=== PATIENT | male | born 1980 | race Caucasian/White ===

== ENCOUNTER 2022-06-30 09:58 | Emergency (ER) | payer SELFPAY ==
[~2022-06-30] VITALS: Ht 187.9 cm; Wt 117.9 kg
[2022-06-30] MEDS ORDERED: LIDOCAINE 2% VISCOUS 15 ML UDC PO ONE (10:45)
[2022-06-30] MEDS ORDERED: ANTACID SUSP 30 ML UDC (MYLANTA) PO ONE (10:45)
[2022-06-30] MEDS ORDERED: SUCRALFATE 1 GM (CARAFATE) TAB PO ONE (10:45)
[2022-06-30 10:54] LABS: BASOPHILS # (AUTO) 0.1 10^3/uL (0.0-0.1); BASOPHILS % (AUTO) 1 % (0-10); EOSINOPHILS # (AUTO) 0.1 10^3/uL (0.0-0.3); EOSINOPHILS % (AUTO) 1 % (0-10); HEMATOCRIT 46 % (40-54); HEMOGLOBIN 15.8 g/dL (13.3-17.7); LYMPHOCYTES # (AUTO) 2.8 10^3/uL (1.0-4.0); LYMPHOCYTES % (AUTO) 31 % (12-44); MEAN CORPUSCULAR HEMOGLOBIN 31 pg (25-34); MEAN CORPUSCULAR HGB CONC 34 g/dL (32-36); MEAN CORPUSCULAR VOLUME 89 fL (80-99); MEAN PLATELET VOLUME 11.8 fL (9.0-12.2); MONOCYTES # (AUTO) 0.6 10^3/uL (0.0-1.0); MONOCYTES % (AUTO) 7 % (0-12); NEUTROPHILS # (AUTO) 5.4 10^3/uL (1.8-7.8); NEUTROPHILS % (AUTO) 60 % (42-75); PLATELET COUNT 189 10^3/uL (130-400)
[2022-06-30 11:06] LABS: ALBUMIN 4.2 GM/DL (3.2-4.5)
[2022-06-30 11:07] LABS: POTASSIUM 3.5 MMOL/L (3.6-5.0)
[2022-06-30 11:08] LABS: CALCIUM 9.1 MG/DL (8.5-10.1)
[2022-06-30 11:09] LABS: TOTAL PROTEIN 7.3 GM/DL (6.4-8.2)
[2022-06-30 11:11] LABS: BILIRUBIN,TOTAL 0.3 MG/DL (0.1-1.0)
--- NOTE | 2022-06-30 11:11 | ED Chest Pain ---
General Chief Complaint: Chest Pain Stated Complaint: CHEST PAINS | ACID REFLUX Nursing Triage Note: ARRIVES TO ED THIS AM WITH A C/O CHEST PAIN FOR 3 DAYS AT HOME WITH INCREASED SOB WITH ACTIVITY, FREQUENT COLD SWEATS AND A PAIN RATING OF 7/10 IN HIS MEDIAL CHEST DENIES RADIATION. Source: patient Exam Limitations: no limitations History of Present Illness Date Seen by Provider: Jun 30, 2022 Time Seen by Provider: 10:46 Initial Comments 41-year-old male presents emergency department today for chest pain. Pain has been intermittent sharp stabbing in his left mid chest for 2 to 3 days. Each time was associated with the taste of metal in his mouth which she thinks is related to acid reflux. It does cause him to get slightly short of breath when it happens. Each episode lasts between 20 minutes to an hour. Denies any fevers chills cough. No change in bowel or bladder habits. No recent changes in his diet. He does not take any medications. No cardiac history. All other systems reviewed and negative except documented per HPI. Voice recognition software was used to help create this chart Allergies and Home Medications Allergies Coded Allergies: morphine (Verified Allergy, Unknown, 06/30/22) Patient Home Medication List Home Medication List Reviewed: Yes Sucralfate (Carafate) 1 Gram Tablet, 1 GM PO ACHS Prescribed by: TARA NICOLE MD on 06/30/22 6799 Review of Systems Review of Systems Constitutional: see HPI Past Dlizwkw-Ybyjui-Anigqw Hx Patient Social History Tobacco Use?: Yes Tobacco type used: Cigarettes Smoking Status: Current Everyday Smoker Use of E-Cig and/or Vaping dev: No Substance use?: No Alcohol Use?: No Immunizations Up To Date Influenza Vaccine Up-to-Date: No; Not Current Past Medical History Surgery/Hospitalization HX: PMH- ACID REFLUX PSH-DENIES Family Medical History Reviewed Nursing Family Hx Heart Disease, CAD Under 55 Years Old Physical Exam Vital Signs Vital Signs - First Documented 06/30/22 10:05 Temp 36.4 Pulse 95 Resp 18 B/P (MAP) 148/96 (113) Pulse Ox 98 O2 Delivery Room Air Capillary Refill : Less Than 3 Seconds Height, Weight, BMI Height: 6'11" Weight: 265lbs. oz. 120.224321cg; 33.00 BMI Method: General Appearance: No Apparent Distress, WD/WN HEENT: Normal ENT Inspection, Pharynx Normal Neck: Full Range of Motion, Non Tender, Supple Respiratory: Chest Non Tender, Lungs Clear, Normal Breath Sounds, No Accessory Muscle Use, No Respiratory Distress Cardiovascular: No Murmur, Normal Peripheral Pulses Gastrointestinal: Normal Bowel Sounds, No Organomegaly, No Pulsatile Mass, Non Tender, Soft Neurologic/Psychiatric: Alert, Oriented x3 Skin: Normal Color, Warm/Dry Progress/Results/Core Measures Results/Orders Lab Results Laboratory Tests Test 06/30/22 10:11 Range/Units White Blood Count 9.0 4.3-11.0 10^3/uL Red Blood Count 5.18 4.30-5.52 10^6/uL Hemoglobin 15.8 13.3-17.7 g/dL Hematocrit 46 40-54 % Mean Corpuscular Volume 89 80-99 fL Mean Corpuscular Hemoglobin 31 25-34 pg Mean Corpuscular Hemoglobin Concent 34 32-36 g/dL Red Cell Distribution Width 12.7 10.0-14.5 % Platelet Count 189 130-400 10^3/uL Mean Platelet Volume 11.8 9.0-12.2 fL Immature Granulocyte % (Auto) 0 % Neutrophils (%) (Auto) 60 42-75 % Lymphocytes (%) (Auto) 31 12-44 % Monocytes (%) (Auto) 7 0-12 % Eosinophils (%) (Auto) 1 0-10 % Basophils (%) (Auto) 1 0-10 % Neutrophils # (Auto) 5.4 1.8-7.8 10^3/uL Lymphocytes # (Auto) 2.8 1.0-4.0 10^3/uL Monocytes # (Auto) 0.6 0.0-1.0 10^3/uL Eosinophils # (Auto) 0.1 0.0-0.3 10^3/uL Basophils # (Auto) 0.1 0.0-0.1 10^3/uL Immature Granulocyte # (Auto) 0.0 0.0-0.1 10^3/uL Sodium Level 139 135-145 MMOL/L Potassium Level 3.5 L 3.6-5.0 MMOL/L Chloride Level 106 98-107 MMOL/L Carbon Dioxide Level 22 21-32 MMOL/L Anion Gap 11 5-14 MMOL/L Blood Urea Nitrogen 13 7-18 MG/DL Creatinine 1.00 0.60-1.30 MG/DL Estimat Glomerular Filtration Rate 96 BUN/Creatinine Ratio 13 Glucose Level 122 H 70-105 MG/DL Calcium Level 9.1 8.5-10.1 MG/DL Corrected Calcium 8.9 8.5-10.1 MG/DL Total Bilirubin 0.3 0.1-1.0 MG/DL Aspartate Amino Transf (AST/SGOT) 18 5-34 U/L Alanine Aminotransferase (ALT/SGPT) 28 0-55 U/L Alkaline Phosphatase 57 40-136 U/L Troponin I < 0.028 <0.028 NG/ML Total Protein 7.3 6.4-8.2 GM/DL Albumin 4.2 3.2-4.5 GM/DL My Orders Orders - TARA NICOLE DO Ekg Tracing (06/30/22 10:17) Cbc With Automated Diff (06/30/22 10:43) Chest 1 View, Ap/Pa Only (06/30/22 10:43) Comprehensive Metabolic Panel (06/30/22 10:43) Ed Iv/Invasive Line Start (06/30/22 10:43) Troponin I Jered (06/30/22 10:43) Sucralfate Tablet (Carafate Tablet) (06/30/22 10:45) Antacid Suspension (Mylanta Suspension (06/30/22 10:45) Lidocaine 2% Viscous 15 Ml (Xylocaine Vi (06/30/22 10:45) Medications Given in ED Current Medications Medications Dose Ordered Sig/Rosario Route Start Time Stop Time Status Last Admin Dose Admin Al Hydrox/Mg Hydrox/Simethicone 30 ml ONCE ONCE PO 06/30/22 10:45 06/30/22 10:46 DC 06/30/22 10:51 30 ML Lidocaine HCl 5 ml ONCE ONCE PO 06/30/22 10:45 06/30/22 10:46 DC 06/30/22 10:51 5 ML Sucralfate 1 gm ONCE ONCE PO 06/30/22 10:45 06/30/22 10:46 DC 06/30/22 10:50 1 GM Vital Signs/I&O 06/30/22 06/30/22 10:05 10:05 Temp 36.4 Pulse 95 Resp 18 B/P (MAP) 148/96 (113) Pulse Ox 98 O2 Delivery Room Air Blood Pressure Mean: 113 Comment Independent review of EKG shows sinus rhythm at 91 bpm. Normal intervals. Normal axis. No ST or T wave abnormalities. No ectopy. Departure Communication (Admissions) Independently reviewed the chest x-ray shows no acute abnormalities. Initial differential diagnosis includes pneumothorax, pneumonia, PE, ACS, esophageal reflux, gastritis. Negative PERC criteria, no evidence of PE. Low risk ACS, negative EKG, troponin and symptoms present for about a week. No indication of ACS at this time. Chest x-ray is clear, no pneumothorax or pneumonia. Esophageal reflux esophagitis less likely cause at this time. He was given a GI cocktail and had improvement in his symptoms. Be discharged recommendation to use a PPI. Will discharge with Carafate as needed as well. Impression Primary Impression: Chest pain Qualified Codes: R07.9 - Chest pain, unspecified Disposition: HOME, SELF-CARE Condition: Stable Departure-Patient Inst. Referrals: KANCHAN RUIZ MD (PCP/Family) Primary Care Physician Add. Discharge Instructions: Schedule with your heart or lungs at this time. This is most likely from acid reflux. Take Nexium or Protonix [id number]. Use Carafate as needed for intermittent pains. Follow-up with primary doctor should your symptoms persist. Return to the emergency department should your symptoms change in any way concerning to you. All discharge instructions reviewed with patient and/or family. Voiced understanding. Scripts Sucralfate (Carafate) 1 Gram Tablet 1 GM PO ACHS for Abdominal Pain for 5 Days, #20 TAB Prov: TARA NICOLE DO 06/30/22 TARA NICOLE DO Jun 30, 2022 11:11
--- NOTE | 2022-06-30 11:22 | Diagnostic Imaging Report ---
INDICATION: Chest pain. EXAMINATION: Chest 06/30/2022 COMPARISON: 06/23/2015 FINDINGS: The heart is unremarkable. Pulmonary vasculature normal. Lungs clear with no infiltrates, effusions or pneumothorax. IMPRESSION: 1. No acute cardiopulmonary process. Dictated by: Dictated on workstation # [id number]
[2022-06-30] MEDS ORDERED: SUCR1TAB36 PO (11:49)
[2022-06-30 11:59] VITALS: BP 136/85
== END 2022-06-30 11:59 | disposition home or self-care (01) ==
LOC: EDUNIT# 09:58 → ER 10:01
DX: R07.89 Other chest pain (principal); F17.210 Nicotine dependence, cigarettes, uncomplicated; Z28.310 Unvaccinated for COVID-19
CPT/HCPCS: 36415; 71045; 80053; 84484; 85025; 93005